=== PATIENT | female | born 1970 | race Caucasian/White ===

== ENCOUNTER 2016-08-01 14:14 | Emergency (ER) | payer BC ==
[2016-08-29] MEDS ORDERED: VITAMIN D250000 UNIT PO (08:27)
== END 2016-08-01 16:30 | disposition home or self-care (01) ==
LOC: ER1 14:14
DX: S80.02XA Contusion of left knee, initial encounter (principal); S80.01XA Contusion of right knee, initial encounter; I10 Essential (primary) hypertension; W19.XXXA Unspecified fall, initial encounter; Y92.512 Supermarket, store or market as the place of occurrence of the external cause; Z79.899 Other long term (current) drug therapy
CPT/HCPCS: 73564; 99283

== ENCOUNTER 2016-09-06 08:26 | Emergency (ER) | payer BC ==
[~2016-09-06 08:26] MED LIST: VITAMIN D250000 UNIT PO
== END 2016-09-06 09:53 | disposition home or self-care (01) ==
LOC: ER1 08:26
DX: J18.9 Pneumonia, unspecified organism (principal); J02.9 Acute pharyngitis, unspecified; I10 Essential (primary) hypertension
CPT/HCPCS: 71020; 93005; 99283

== ENCOUNTER 2016-09-08 19:05 | Observation (INO) | payer BC ==
[~2016-09-08] VITALS: Ht 167.6 cm; Wt 190.6 kg
[2016-09-08 23:22] LABS: HEMOGLOBIN 11.3 gm/dl (12.3-15.3); RED BLOOD COUNT 4.13 M/UL (4.00-5.10); WHITE BLOOD COUNT 8.5 K/UL (4.5-11.0)
[2016-09-08 23:36] LABS: BUN/CREATININE RATIO 20 (0-10)
[2016-09-09 05:27] LABS: HEMOGLOBIN 11.8 gm/dl (12.3-15.3); RED BLOOD COUNT 4.28 M/UL (4.00-5.10); WHITE BLOOD COUNT 9.1 K/UL (4.5-11.0)
[2016-09-09] MEDS ORDERED: SPIRONOLACTONE50 MG PO (08:25)
[2016-09-09] MEDS ORDERED: NORVASC 5 MG TAB5 MG PO (08:25)
[2016-09-09] MEDS ORDERED: VALSARTAN-HCTZ1 EAC1 PO (08:26)
[2016-09-10 06:15] LABS: HEMOGLOBIN 11.3 gm/dl (12.3-15.3); RED BLOOD COUNT 4.09 M/UL (4.00-5.10); WHITE BLOOD COUNT 9.5 K/UL (4.5-11.0)
[2016-09-10 06:34] LABS: BUN/CREATININE RATIO 32 (0-10)
[2016-09-11 07:37] LABS: BUN/CREATININE RATIO 34 (0-10)
[2016-09-11] MEDS ORDERED: LEVAQUIN750 MG PO (11:01)
[2016-09-11] MEDS ORDERED: SYMBICORT 16010.2 GM INH (11:01)
== END 2016-09-11 16:30 | disposition home or self-care (01) ==
LOC: ER1 19:05 → ZEROF 09-09 03:40 → M/S 09-09 04:29
PROVIDERS: Emergency Medicine; ADMIT Internal Medicine
DX: J18.9 Pneumonia, unspecified organism (principal); J45.909 Unspecified asthma, uncomplicated; E66.01 Morbid (severe) obesity due to excess calories; I10 Essential (primary) hypertension; E78.00 Pure hypercholesterolemia, unspecified; Z90.49 Acquired absence of other specified parts of digestive tract
CPT/HCPCS: 36415; 71020; 71260; 80048; 80053; 82550; 82553; 82962; 83605; 83874; 84484; 85025; 85027; 85379; 87040; 87278; 87385; 93005; 94640; 94664; 96365; 96375; 99285; G0378; J0696; J1956; J2930; J7050; Q9962

== ENCOUNTER 2020-09-16 09:51 | Emergency (ER) | payer OTHER ==
[~2020-09-16 09:51] MED LIST changes: +ADULT LOW DOSE81 MG PO; +ALBUTEROL2.5 MG/3 M INH; +ASPIRIN CHEWABL81 MG PO; +BETAPACE 80MG T80 MG PO; +DESYREL 50 MG T50 MG PO; +ELIQUIS 5 MG TAB5 MG PO; +FUROSEMIDE20 MG PO; +IMITREX TAB 2525 MG PO; +LEVAQUIN750 MG PO; +METOPROLOL TART25 MG PO; +NITROGLYCERIN0.4 MG SL; +NORVASC 5 MG TAB5 MG PO; +PROAIR HFA8.5 GM INH; +RANEXA1000 MG PO; +SINGULAIR10 MG PO; +SPIRONOLACTONE50 MG PO; +SYMBICORT 16010.2 GM INH; +TOPAMAX50 MG PO; +TRIBENZOR 40-11 EACH PO; +VALSARTAN-HCTZ1 EAC1 PO; +VOLTAREN EC 7575 MG PO
[2020-09-16 11:07] LABS: HEMOGLOBIN 11.9 gm/dl (12.3-15.3); RED BLOOD COUNT 3.76 M/UL (4.00-5.10); WHITE BLOOD COUNT 5.9 K/UL (4.5-11.0)
[2020-09-16 11:33] LABS: BUN/CREATININE RATIO 20 (0-10)
[2020-09-16] MEDS ORDERED: NAPROSYN500 MG PO (17:20)
[2020-09-16] MEDS ORDERED: CYCLOBENZAPRINE5 MG PO (17:20)
== END 2020-09-16 17:45 | disposition home or self-care (01) ==
LOC: ER1 09:51
DX: S39.012A Strain of muscle, fascia and tendon of lower back, initial encounter (principal); N83.8 Other noninflammatory disorders of ovary, fallopian tube and broad ligament; I10 Essential (primary) hypertension; I48.91 Unspecified atrial fibrillation; Z85.3 Personal history of malignant neoplasm of breast; Z79.01 Long term (current) use of anticoagulants; Z79.899 Other long term (current) drug therapy; X58.XXXA Exposure to other specified factors, initial encounter
CPT/HCPCS: 76830; 80053; 81001; 83690; 85025; 87086; 96374; 96375; 99284; J1885; J2405

== ENCOUNTER → 2020-09-17 | Outpatient (CLI) | payer OTHER ==
[~2020-09-17] MED LIST changes: +CYCLOBENZAPRINE5 MG PO; +NAPROSYN500 MG PO
== END ==
LOC: KOH-I 15:04
DX: M54.5 Low back pain (principal); M47.816 Spondylosis without myelopathy or radiculopathy, lumbar region
CPT/HCPCS: 72100

== ENCOUNTER 2020-10-06 15:18 | Emergency (ER) | payer OTHER ==
[2020-10-06 16:24] LABS: HEMOGLOBIN 12.7 gm/dl (12.3-15.3); RED BLOOD COUNT 4.03 M/UL (4.00-5.10); WHITE BLOOD COUNT 6.4 K/UL (4.5-11.0)
[2020-10-06 17:00] LABS: BUN/CREATININE RATIO 23 (0-10)
== END 2020-10-06 19:46 | disposition home or self-care (01) ==
LOC: ER1 15:18
PROVIDERS: Emergency Medicine
DX: N83.8 Other noninflammatory disorders of ovary, fallopian tube and broad ligament (principal); R10.31 Right lower quadrant pain; I10 Essential (primary) hypertension; I48.91 Unspecified atrial fibrillation; Z90.49 Acquired absence of other specified parts of digestive tract; Z85.3 Personal history of malignant neoplasm of breast
CPT/HCPCS: 80053; 81001; 83690; 85025; 99284; Q9967

== ENCOUNTER → 2020-12-07 | Outpatient (CLI) | payer BC, OTHER | LOC: RAD 15:22 | DX: R05 Cough (principal) | CPT/HCPCS: 71046 ==

== ENCOUNTER → 2021-05-11 | Outpatient (CLI) | payer BC, OTHER | LOC: HEART 5 09:41 | DX: I27.20 Pulmonary hypertension, unspecified (principal); R06.02 Shortness of breath; I08.1 Rheumatic disorders of both mitral and tricuspid valves | CPT/HCPCS: 93306 ==

== ENCOUNTER 2021-06-21 20:36 | Emergency (ER) | payer BC, OTHER ==
[2021-06-22] MEDS ORDERED: HYDROCODON-ACE1 EAC2 PO (01:29)
== END 2021-06-22 01:30 | disposition home or self-care (01) ==
LOC: ER1 20:36
DX: M84.48XA Pathological fracture, other site, initial encounter for fracture (principal); I10 Essential (primary) hypertension; G89.29 Other chronic pain; F17.210 Nicotine dependence, cigarettes, uncomplicated; J45.909 Unspecified asthma, uncomplicated; Z87.39 Personal history of other diseases of the musculoskeletal system and connective tissue; Z85.3 Personal history of malignant neoplasm of breast
CPT/HCPCS: 72100; 96372; 99283; J2270

== ENCOUNTER 2021-06-26 15:22 | Emergency (ER) | payer BC, OTHER ==
[~2021-06-26 15:22] MED LIST changes: +HYDROCODON-ACE1 EAC2 PO
[2021-06-26 17:07] LABS: RED BLOOD COUNT 4.09 M/UL (4.00-5.10); WHITE BLOOD COUNT 7.1 K/UL (4.5-11.0)
[2021-06-26 17:23] LABS: BUN/CREATININE RATIO 23 (0-10)
[2021-06-26] MEDS ORDERED: PERCOCET 10-321 EACH PO (18:51)
== END 2021-06-26 19:35 | disposition home or self-care (01) ==
LOC: ER1 15:22
PROVIDERS: Family Medicine
DX: C79.51 Secondary malignant neoplasm of bone (principal); R20.2 Paresthesia of skin; I10 Essential (primary) hypertension; Z85.3 Personal history of malignant neoplasm of breast; I48.91 Unspecified atrial fibrillation; Z79.82 Long term (current) use of aspirin
CPT/HCPCS: 72131; 80048; 85025; 86140; 96374; 96375; 96376; 99284; J2270; J2405